=== PATIENT | female | born 1965 | race Caucasian/White ===

== ENCOUNTER 2017-04-07 07:46 | Day surgery (SDC) | payer OTHER ==
[2017-04-07] VITALS (16 sets, daily range): BP systolic 113–146; BP diastolic 67–86; PULSE 16–100; RESP 13–24; Ht 154.9 cm; Wt 75.0 kg
[~2017-04-07] VITALS: Ht 154.9 cm; Wt 75.0 kg
[2017-04-07] MEDS ORDERED: SOD CHLORIDE 0.9% 1,000 ML IV ONE (08:30)
[2017-04-07] MEDS ORDERED: FENTAnyl 50 MCG/ML VIAL IV PRN (08:30)
[2017-04-07] MEDS ORDERED: DIPHENHYDRAMINE 50 MG INJ IV PRN (08:30)
[2017-04-07] MEDS ORDERED: KETOROLAC 30 MG INJ IV ONE (08:30)
[2017-04-07] MEDS ORDERED: ONDANSETRON 4 MG INJ IV PRN (08:30)
[2017-04-07] MEDS ORDERED: PROCHLORPERAZINE 10 MG INJ IV PRN (08:30)
[2017-04-07] MEDS ORDERED: OXYCODONE/ACETAMINOPHEN (5/325) TAB PO PRN ×2 (08:30)
[2017-04-07] MEDS ORDERED: MEPERIDINE 25 MG INJ IV PRN (08:30)
[2017-04-07] MEDS ORDERED: CEFAZOLIN 2 GM/50 ML (PMX) 50 ML IVPB ONE (08:30)
[2017-04-07] MEDS ORDERED: METF1000 PO (08:35)
[2017-04-07] MEDS ORDERED: AMLO-147 PO (08:35)
--- NOTE | 2017-04-07 08:50 | RADRPT ---
PROCEDURE: XR Chest. CLINICAL INDICATION: Preop, laparoscopic cholecystectomy TECHNIQUE: AP view of the chest was obtained. COMPARISON: None. FINDINGS: The cardiomediastinal silhouette is within normal limits. Lungs appear clear. No pleural effusion or pneumothorax is identified. Visualized osseous structures appear intact. IMPRESSION: No evidence of active cardiopulmonary disease. RPTAT: VV .Yuri Perez MD, MD Date Time Electronically viewed and signed by .Yuri Perez MD, on 04/07/2017 08:50 .O/
[2017-04-07] MEDS ORDERED: CEFAZOLIN 1 GM INJ ONE (08:57)
[2017-04-07] MEDS ORDERED: SUCCINYLCHOLINE CHLORIDE 100 MG/5 ML SYG IV ONE (08:57)
[2017-04-07] MEDS ORDERED: LIDOCAINE 2% (SDV) 5 ML INJ ONE (08:57)
[2017-04-07] MEDS ORDERED: ROCURONIUM 50 MG INJ ONE (08:57)
[2017-04-07] MEDS ORDERED: PROPOFOL 20 ML ONE (08:57)
[2017-04-07] MEDS ORDERED: MIDAZOLAM 1 MG/ML 2 ML INJ ONE (08:57)
[2017-04-07] MEDS ORDERED: FENTAnyl 50 MCG/ML VIAL ONE ×2 (08:58→10:19)
[2017-04-07 09:16] LABS: ADD SCAN DIFF NO
[2017-04-07 09:19] LABS: BASOPHILS % 0.6 % (0.0-2.0); EOSINOPHILS # 0.2 10^3/ul (0.0-0.5); EOSINOPHILS % 3.4 % (0.0-7.0); HEMATOCRIT 38.4 % (37.0-47.0); LYMPHOCYTES % 31.2 % (15.0-51.0); MEAN CORPUSCULAR HEMOGLOBIN 28.1 pg (29.0-33.0); MEAN CORPUSCULAR HGB CONC 33.9 g/dl (32.0-37.0); MEAN CORPUSCULAR VOLUME 83.1 fl (82.0-101.0); MEAN PLATELET VOLUME 10.5 fl (7.4-10.4); MONOCYTE # 0.5 10^3/ul (0.3-0.9); MONOCYTES % 7.6 % (0.0-11.0); NEUTROPHIL # 3.7 10^3/ul (1.6-7.5); NEUTROPHILS % 56.9 % (39.0-77.0); PLATELET COUNT 354 10^3/UL (140-415); RED BLOOD COUNT 4.62 10^6/ul (4.20-5.40); RED CELL DISTRIBUTION WIDTH 12.4 % (11.5-14.5); WHITE BLOOD COUNT 6.5 10^3/ul (4.8-10.8)
[2017-04-07 09:35] LABS: INR 1.01; PROTIME 13.3 Sec (12.2-14.2)
[2017-04-07 09:36] LABS: PARTIAL THROMBOPLASTIN TIME 28.2 Sec (25.0-35.0)
[2017-04-07 09:37] LABS: ALBUMIN/GLOBULIN RATIO 1.11; BILIRUBIN,INDIRECT 0.4 mg/dl (0-1.1); BILIRUBIN,TOTAL 0.4 mg/dl (0.2-1.3); TOTAL PROTEIN 7.6 g/dl (6.1-8.1)
[2017-04-07 09:41] LABS: CREATININE 0.48 mg/dl (0.44-1.00); POTASSIUM 3.7 mmol/L (3.5-5.1)
[2017-04-07] MEDS ORDERED: BUPIVACAINE 0.25% (MPF) 10 ML 10 ML VIAL ONE (09:46)
[2017-04-07] MEDS ORDERED: GLUCAGON 1 MG INJ IM PRN (10:00)
[2017-04-07] MEDS ORDERED: GLUCOSE GEL 15 GRAM TUBE PO PRN ×2 (10:00)
[2017-04-07] MEDS ORDERED: INSULIN ASPART [NOVOLOG] 3 ML PEN SC ONE (10:00)
[2017-04-07] MEDS ORDERED: DEXTROSE 50% 50 ML SYRINGE IV PRN ×2 (10:00)
[2017-04-07] MEDS ORDERED: GLUCOSE GEL 15 GRAM TUBE BUCCAL PRN (10:00)
[2017-04-07] MEDS ORDERED: ONDANSETRON 4 MG INJ ONE (10:08)
[2017-04-07] MEDS ORDERED: DEXAMETHASONE 4 MG/ML 1 ML INJ ONE (10:08)
[2017-04-07] MEDS ORDERED: METOCLOPRAMIDE 10 MG INJ ONE (10:08)
[2017-04-07] MEDS ORDERED: EPHEDrine SULFATE 50 MG/5 ML SYG ONE (10:23)
[2017-04-07] MEDS ORDERED: GLYCOPYRROLATE 0.4 MG INJ ONE (10:29)
[2017-04-07] MEDS ORDERED: NEOSTIGMINE 3 MG/3 ML SYRINGE ONE (10:29)
[2017-04-07] MEDS ORDERED: ESMOLOL 10 ML ONE (10:40)
--- NOTE | 2017-04-07 10:44 | OPR ---
Date/Time of Note Date/Time of Note DATE: 04/07/17 TIME: 10:43 Operative Report Procedure Date: April 07, 2017 Preoperative Diagnosis symptomatic gallstones and cholecystitis liver LACY Postoperative Diagnosis same Operation Performed lap lanny wedge liver biopsy Surgeon: Yasemin BRENNER Specimens gallbladder liver wedge biopsy Yasemin BRENNER April 07, 2017 10:44
[2017-04-07] MEDS: HYDROmorphONE (0.2 MG/ML) 10ML SYG IV PRN ×4 (10:55→11:15)
[2017-04-07] MEDS ORDERED: HYDROCODONE/APAP (5/325) TAB PO ONE (11:00)
--- NOTE | 2017-04-07 11:52 | OPR ---
DATE OF OPERATION: 04/07/2017 INDICATIONS: This is a 51-year-old female with symptomatic gallstones and liver LACY. She requests surgical excision of her gallbladder and a liver biopsy. Risks, alternatives, benefits, and person mariano were discussed with the patient. Patient expressed understanding and consents to the operation. PREOPERATIVE DIAGNOSIS: Symptomatic gallstones with LACY. POSTOPERATIVE DIAGNOSIS: Symptomatic gallstones with LACY. OPERATION PERFORMED: 1. [place]aroscopic [place] [address]. 2. Biopsy of liver, [place] [address]. SURGEON: Omid Stringer MD SPECIMENS: Gallbladder and liver wedge biopsy. COMPLICATIONS: None. ANESTHESIA: General. PROCEDURE: The patient was taken to the OR and prepped and draped in the usual sterile fashion. Wilson rgical timeout was performed. IV antibiotics were given. Infraumbilical incision is made with a 15 blade. Dissection cautery was carried down to the fascia which was divided with curved Alex scisso rs. An 0 Vicryl U-stitch was placed into the fascia. Balloon Bolivar trocar was introduced. Pneumo peritoneum was established. Midepigastric 12 mm optical trocar and right upper quadrant and right u pper flank 5 mm optical trocars are placed under direct visualization. Upon initial inspection, the re were adhesions to the gallbladder with evidence of previous cholecystitis. The cystic duct was i dentified. The critical view was established. The cystic duct was divided using a 35 mm [place] va scular load stapler. The staple line was reinforced with clips. The cystic artery is divided with 3 clips proximal, 1 clip distal, the gallbladder was taken off the gallbladder bed and retrieved wit h the EndoCatch bag. Wedge liver biopsy performed in segment 8 by cauterizing a wedge of the liver and excising the biopsy specimen through the midepigastric port. The biopsy site is hemostatic. Po rts were removed under direct visualization, 0 Vicryl U-stitch was tied down. Skin was closed using skin lexi. Local anesthesia was injected and dressings were applied. Dictated By: OMID GUERRA/BJ Conf#: [id number] DID#: [id number]
--- NOTE | 2017-04-08 14:12 | RADRPT ---
Vent Rate: 73 bpm RR Interval: 0 msec MO Interval: 154 msec QRS Duration: 82 msec QT Interval: 406 msec QTC Interval: 447 msec P-R-T [place]: 32 - 47 - 52 degrees Normal sinus rhythm Normal ECG Electronically Signed By: Fan Rubi [id number]
== END 2017-04-07 12:30 | disposition home or self-care (01) ==
LOC: SDS 07:46
PROVIDERS: ATTEND Surgery
DX: K80.10 Calculus of gallbladder with chronic cholecystitis without obstruction (principal); K76.89 Other specified diseases of liver; I10 Essential (primary) hypertension; E11.9 Type 2 diabetes mellitus without complications; E78.5 Hyperlipidemia, unspecified
CPT/HCPCS: 47100; 47562; 71010; 80053; 82962; 84703; 85025; 85610; 85730; 88304; 88307; 88313; 93005; J0690; J1100; J1170; J1815; J1885; J2175; J2250; J2405; J2710; J2765; J3010; J7999; Z7512; Z7610

== ENCOUNTER 2017-05-02 10:50 | Day surgery (SDC) | payer OTHER ==
[~2017-05-02] VITALS: Ht 154.9 cm; Wt 73.3 kg
[2017-05-02] VITALS (12 sets, daily range): BP systolic 108–148; BP diastolic 65–86; PULSE 68–100; RESP 11–19; Ht 154.9 cm; Wt 73.3 kg
[~2017-05-02 10:50] MED LIST: AMLO-147 PO; METF1000 PO
[2017-05-02] MEDS ORDERED: SOD CHLORIDE 0.9% 1,000 ML IV ONE (11:00)
[2017-05-02] MEDS ORDERED: CEFAZOLIN 2 GM/50 ML (PMX) 50 ML IVPB SCH (11:00)
[2017-05-02 11:58] LABS: ADD SCAN DIFF NO
[2017-05-02 12:00] LABS: BASOPHIL # 0.1 10^3/ul (0.0-0.1); BASOPHILS % 0.9 % (0.0-2.0); EOSINOPHILS # 0.2 10^3/ul (0.0-0.5); EOSINOPHILS % 3.6 % (0.0-7.0); HEMATOCRIT 35.9 % (37.0-47.0); HEMOGLOBIN 12.2 g/dl (12.0-16.0); LYMPHOCYTES # 2.1 10^3/ul (0.8-2.9); LYMPHOCYTES % 33.3 % (15.0-51.0); MEAN CORPUSCULAR HEMOGLOBIN 28.1 pg (29.0-33.0); MEAN CORPUSCULAR VOLUME 82.7 fl (82.0-101.0); MONOCYTE # 0.4 10^3/ul (0.3-0.9); MONOCYTES % 6.8 % (0.0-11.0); NEUTROPHIL # 3.5 10^3/ul (1.6-7.5); NEUTROPHILS % 55.2 % (39.0-77.0); PLATELET COUNT 392 10^3/UL (140-415); RED BLOOD COUNT 4.34 10^6/ul (4.20-5.40); RED CELL DISTRIBUTION WIDTH 12.4 % (11.5-14.5); WHITE BLOOD COUNT 6.4 10^3/ul (4.8-10.8)
[2017-05-02 12:32] LABS: INR 0.98
[2017-05-02 12:33] LABS: PARTIAL THROMBOPLASTIN TIME 30.9 Sec (25.0-35.0)
[2017-05-02 12:37] LABS: ALBUMIN 4.6 g/dl (3.3-4.9); ALBUMIN/GLOBULIN RATIO 4.18; BILIRUBIN,INDIRECT 0.4 mg/dl (0-1.1); BILIRUBIN,TOTAL 0.4 mg/dl (0.2-1.3); TOTAL PROTEIN 5.7 g/dl (6.1-8.1)
[2017-05-02] MEDS ORDERED: BUPIVACAINE 0.25% (MPF) 30 ML INJ ONE (12:37)
[2017-05-02 12:41] LABS: CALCIUM 9.2 mg/dl (8.4-10.2); CREATININE 0.51 mg/dl (0.44-1.00); POTASSIUM 3.9 mmol/L (3.5-5.1)
[2017-05-02] MEDS ORDERED: FENTAnyl 50 MCG/ML VIAL ONE ×2 (12:53→13:52)
[2017-05-02] MEDS ORDERED: SUCCINYLCHOLINE CHLORIDE 100 MG/5 ML SYG IV ONE (13:04)
[2017-05-02] MEDS ORDERED: LIDOCAINE 2% (SDV) 5 ML INJ ONE (13:04)
[2017-05-02] MEDS ORDERED: ROCURONIUM 50 MG INJ ONE (13:04)
[2017-05-02] MEDS ORDERED: GLYCOPYRROLATE 0.4 MG INJ ONE (13:04)
[2017-05-02] MEDS ORDERED: ROPIVACAINE 0.5 % 30 ML VIAL ONE (13:05)
[2017-05-02] MEDS ORDERED: CEFAZOLIN 1 GM INJ ONE (13:05)
[2017-05-02] MEDS ORDERED: NEOSTIGMINE 3 MG/3 ML SYRINGE ONE (13:05)
[2017-05-02] MEDS ORDERED: PROPOFOL 20 ML ONE (13:05)
[2017-05-02] MEDS ORDERED: ONDANSETRON 4 MG INJ IV PRN (13:30)
[2017-05-02] MEDS ORDERED: DIPHENHYDRAMINE 50 MG INJ IV PRN (13:30)
[2017-05-02] MEDS ORDERED: FENTAnyl 50 MCG/ML VIAL IV PRN ×2 (13:30)
[2017-05-02] MEDS ORDERED: HYDROmorphONE (0.2 MG/ML) 10ML SYG IV PRN ×3 (13:30)
[2017-05-02] MEDS ORDERED: MEPERIDINE 25 MG INJ IV PRN (13:30)
--- NOTE | 2017-05-02 13:40 | OPR ---
Date/Time of Note Date/Time of Note DATE: 05/02/17 TIME: 13:39 Operative Report Preoperative Diagnosis incarcerated ventral hernia Postoperative Diagnosis same Operation/Procedure Performed lap incarcerated ventral hernia repair mesh implantation to abdomen therapeutic injection of subcutaneous marcaine Surgeon: Yasemin BRENNER G. SEONG May 02, 2017 13:40
[2017-05-02] MEDS ORDERED: HYDROCODONE/APAP (5/325) TAB PO ONE (14:00)
--- NOTE | 2017-05-02 14:07 | OPR ---
DATE OF OPERATION: 05/02/2017 INDICATION: This is a 51-year-old female with an incarcerated ventral hernia. She requests surgica l repair. Risks, alternatives, benefits, and personnel were discussed with the patient. Patient ex pressed understanding and consents to the operation. PREOPERATIVE DIAGNOSIS: Incarcerated ventral hernia. POSTOPERATIVE DIAGNOSIS: Incarcerated ventral hernia. OPERATION PERFORMED: 1. Laparoscopic incarcerated ventral hernia repair. 2. Mesh implantation. CPT code 31041. 3. Therapeutic injection of subcutaneous Marcaine, CPT code 58966. SPECIMEN: None. COMPLICATIONS: None. ANESTHESIA: General. PROCEDURE: The patient was taken to the OR and prepped and draped in usual sterile fashion. Surgic al timeout was performed. IV antibiotics were given. Left upper quadrant 5 mm transverse incision is made with a 15 blade. Using a 5 mm optical trocar, optical entry was performed. Pneumoperitoneu m established. Left flank 12 mm optical trocar and left lower quadrant 5 mm optical trocars are melony sulema under direct visualization. Upon initial inspection, there was incarcerated hernia contents whi ch were adhesed with scarring. This was reduced using laparoscopic Harmonic and laparoscopic techni ques. Large defect approximately 4 cm was identified. This was closed with interrupted #1 Prolene using Endoclose and laparoscopic techniques. Underlay mesh with Ventralight ST 15 x 20 cm was secur ed with SecureStrap as an underlay mesh with approximately 4 to 5 cm of coverage in all directions. There was good hemostasis. Ports were removed under direct visualization all incisions were closed with skin lexi. Local anesthesia was injected to all incision sites. Dictated By: MARA GUERRA/BJ Conf#: [id number] DID#: [id number]
--- NOTE | 2017-05-02 14:52 | RADRPT ---
PROCEDURE: XR Abdomen. CLINICAL INDICATION: Abdomen pain. Missing surgical Ray-Mirian sponge. TECHNIQUE: AP supine abdomen x-ray. COMPARISON: None. FINDINGS: This is a limited study. The upper abdomen is not included on the image. The images suboptimal due to technical factors. Surgical skin lexi are present in the left upper quadrant of the abdomen. There is no other radi opaque foreign body. The bowel gas pattern is normal with no evidence of obstruction. There are no abnormal calcifications overlying the urinary tracts. There are degenerative changes of the spine. IMPRESSION: 1. Limited study. 2. Skin lexi in the left upper quadrant of the abdomen. 3. Degenerative changes of the spine. 4. No other radiopaque foreign body. RPTAT: QQ .Kirit Cheney MD, Date Time Electronically viewed and signed by .Kirit Cheney MD, on 05/02/2017 14:51 .R/
== END 2017-05-02 16:08 | disposition home or self-care (01) ==
LOC: SDS 10:50
PROVIDERS: ATTEND Surgery
DX: K43.6 Other and unspecified ventral hernia with obstruction, without gangrene (principal); I10 Essential (primary) hypertension
CPT/HCPCS: 49653; 74000; 80053; 82962; 85025; 85610; 85730; C1781; J0690; J1170; J2710; J2795; J3010; J7999; Z7512; Z7610